=== PATIENT | female | born 1940 | race Caucasian/White ===

== ENCOUNTER → 2016-04-25 | Outpatient (CLI) | payer MEDICARE ==
[~2016-04-25] MED LIST: ACETAMINOPHEN PO; AMITRYPTYLINE PO; ANTIVERT PO; ASPIRIN ENTERI325 M1 PO; ATENOLOL PO; ATENOLOL-CHLORT1 TA2 PO; ATORVASTATIN CA10 MG PO; B-COMPLEX W/1 TAB.SA PO; CALCIUM + D 6001 TA1 PO; CHEWABLE ASPIRI81 MG PO; EFFER-K 10 MEQ10 MEQ PO; FENOFIBRATE48 MG PO; FERRO-TIME325 MG PO; FISH OIL 1,0001 CA2 PO; FISH OIL 1,2001 EAC1 PO; HYDROCODON-ACE1 EAC5 PO; LIPITOR PO; LISINOPRIL10 MG PO; LOMOTIL TABLET1 TAB PO; MOBIC15 MG PO; MOTION SICKNESS25 M5 PO; MULTI-DAY VITAM1 TAB PO; NORCO 7.5-3251 EACH PO; PANTOPRAZOLE SO40 MG PO; PHENERGAN PO; PHENERGAN25 MG PO; POTASSIUM CHLO10 ME2 PO; PRILOSEC PO; PROTONIX PO; SERTRALINE HCL50 M1 PO; TENORMIN50 MG PO; TRICOR PO; VITAMIN B650 M1 PO; VITAMIN D-32000 UNI1 PO; VITAMIN E400 UNI2 PO; ZOFRAN ODT4 MG/UDTAB PO; ZOLOFT PO; ZOLOFT50 MG PO
--- NOTE | ~2016-04-25 | BD1 ---
[facility] A Service of [facility] RADIOLOGY TEXT RESULTS PATIENT: LISA PASTRANA LOCATION: [facility] : 39 UNIT #: [id number] AGE: [address]: Khalida Hernandez MD SEX: F ORDER DR: [id number] [facility] [address] [place], [place] [address] [id number] O MR#: [id number] Acc #: [id number] NAME: LISA PASTRANA : 1940 SEX: F STUDY DATE/TIME: 04/25/2016 9:49 UNIT: [facility] ROOM: STUDY DESCRIPTION: BD Dexa Bone Dens 1+ Site Attending Physician: Khalida Hernandez M.D. Referring Physician: Khalida Hernandez M.D. Ordering Physician: Khalida Hernandez M.D. Primary Care Physician: Khalida Hernandez M.D. MEDICAL IMAGING REPORT This report is preliminary unless electronic signature is present EXAM DXA scan. DATE OF EXAM 04/25/2016 HISTORY Postmenopausal screening for osteoporosis. FINDINGS Bone density assessed utilizing a Hologic bone densitometer. Total bone dense in the proximal left femur was calculated at 0.780 g/cm2 with a T-score -1.3. Total bone density in the lumbar spine was calculated at 0.832 g/cm2 with a T-score -2. IMPRESSION Bone density within the proximal left femur and lumbar spine is between 1 to 2.5 standard deviations below the mean and compatible World Health Organization criteria for osteopenia. Dictated by... Delroy Soto M.D. THIS IS AN ELECTRONICALLY VERIFIED REPORT Delroy Soto M.D. at 04/27/2016 8:30 PM Guillaume TD: 04/25/2016 22:24 JOB #: [id number] MEDICAL IMAGING REPORT COPY
--- NOTE | ~2016-04-25 | MY11 ---
[facility] A Service of [facility] RADIOLOGY TEXT RESULTS PATIENT: LISA PASTRANA LOCATION: [facility] : 39 UNIT #: [id number] AGE: [address]: Khalida Hernandez MD SEX: F ORDER DR: [id number] [facility] [address] [place], [place] [address] [id number] O MR#: [id number] Acc #: [id number] NAME: LISA PASTRANA. : 1940 SEX: F STUDY DATE/TIME: 04/25/2016 9:55 UNIT: [facility] ROOM: STUDY DESCRIPTION: MY Mammogram Screening Dig Octavio Attending Physician: Khalida Hernandez M.D. Referring Physician: Khalida Hernandez M.D. Ordering Physician: Khalida Hernandez M.D. Primary Care Physician: Khalida Hernandez M.D. MEDICAL IMAGING REPORT This report is preliminary unless electronic signature is present EXAM Bilateral digital screening mammogram with CAD, 04/25/2016 INDICATION 76-year-old female for routine screening. No reported problems and no personal or family history of breast cancer. No surgeries. TECHNIQUE CC and MLO views of the breasts were obtained and reviewed with an FDA-approved CAD device. COMPARISON 03/06/2015 FINDINGS Breast parenchyma is composed of scattered fibroglandular densities. The pattern is unchanged. There is no new dominant nodule, mass or suspicious cluster of microcalcifications. There are benign calcifications present. IMPRESSION Negative screening mammogram. One year followup recommended. Patients over the age of 40 are entered into a reminder system with target due date for the next mammogram. A result letter will also be sent to the patient. BIRADS: 1 Negative Dictated by... Chris Hartman M.D. THIS IS AN ELECTRONICALLY VERIFIED REPORT Chris Hartman M.D. at 04/25/2016 5:00 PM [facility] A Service of [facility] RADIOLOGY TEXT RESULTS PATIENT: LISA PASTRANA LOCATION: [facility] : 39 UNIT #: [id number] AGE: [address]: Khalida Hernandez MD SEX: F ORDER DR: SRIDEVI/maria teresa TD: 04/25/2016 13:03 JOB #: [id number] MEDICAL IMAGING REPORT COPY
== END | disposition home or self-care (01) ==
LOC: CWCC 09:28
DX: Z12.31 Encounter for screening mammogram for malignant neoplasm of breast (principal); Z13.820 Encounter for screening for osteoporosis; Z78.0 Asymptomatic menopausal state
CPT/HCPCS: 77080; G0202